=== PATIENT | female | born 1980 | race Caucasian/White ===

== ENCOUNTER 2017-07-20 00:37 | Emergency (ER) | payer OTHER ==
--- NOTE | 2017-07-20 02:24 | EDPHY ---
H & P Stated Complaint: c/o pain in R calf starting tonight, concerned taking hormones cased dvt HPI/ROS: HPI The patient presents with right calf cramping which began several hours prior to presentation. The patient is in 1st trimester of and is on hormone therapy. The cramping has been constant, is achy in nature, there is no associated swelling of the leg. She has no prior history of similar. REVIEW OF SYSTEMS Constitutional: No fever, no chills. Eyes: No discharge. ENT: No sore throat. Cardiovascular: No chest pain, no palpitations. Respiratory: No cough, no shortness of breath. Gastrointestinal: No abdominal pain, no vomiting. Genitourinary: No hematuria. Musculoskeletal: No back pain. Skin: No rashes. Neurological: No headache. PMHx: 9 weeks PHYSICAL General Appearance: Alert, no distress Eyes: Pupils equal and round no pallor or injection ENT, Mouth: Mucous membranes moist Respiratory: Breathing comfortably Neurological: A&O, moves all extremities Skin: Warm and dry, no rashes Extremities: Right calf is slightly tender to palpation with no overlying skin change, symmetrical, full range of motion Psychiatric: Patient is oriented X 3, there is no agitation Source: Patient Exam Limitations: No limitations - Personal History EDC: 02/22/18 - Medical/Surgical History Hx Asthma: No Hx Chronic Respiratory Disease: No Hx Diabetes: No Hx Cardiac Disease: No Hx Renal Disease: No Hx Cirrhosis: No Hx Alcoholism: No Hx HIV/AIDS: No Hx Splenectomy or Spleen Trauma: No Other PMH: surg reattachment of R 3rd finger, ovarian hyperstimulation synd - Social History Smoking Status: Never smoked Constitutional: Initial Vital Signs Temperature (C) 36.7 C 07/20/17 00:41 Heart Rate 84 07/20/17 00:41 Respiratory Rate 16 07/20/17 00:41 Blood Pressure 125/82 H 07/20/17 00:41 O2 Sat (%) 97 07/20/17 00:41 O2 Delivery Mode Room Air Allergies/Adverse Reactions: No Known Allergies Allergy (Unverified 07/20/17 00:47) Home Medications: Medication Instructions Recorded Estradiol 07/20/17 Progesterone 07/20/17 Tylenol 07/20/17 Medical Decision Making - Diagnostics Imaging Results: DVT ultrasound right lower extremity demonstrates no DVT. Imaging: Discussed imaging studies w/ call center support representative Radiologist Differential Diagnosis: 37-year-old G 1 P 0 at 9 weeks estimated gestational age presents with right calf pain and tenderness on exam. There is no asymmetry. Differential diagnosis includes DVT, muscle cramping associated with , less likely [place] cyst. In the emergency department, ultrasound was performed and was unremarkable. Patient was advised to continue hydration and follow up with her primary OB. She is in agreement with this plan. - Data Points Medications Given: Discontinued Medications Acetaminophen (Tylenol) 500 mg PO EDNOW ONE Stop: 07/20/17 02:39 Last Admin: 07/20/17 02:40 Dose: 500 mg Departure - Departure Disposition: Home, Routine, Self-Care Clinical Impression: Muscle cramp Condition: Good Instructions: Leg Cramps (ED), Muscle Cramp (ED) Additional Instructions: Please return to the emergency department if your worse in any way. You should follow up with your OBGYN in the next few days if your pain continues. Referrals: NONE *PRIMARY CARE P,. [Primary Care Provider] - As per Instructions
[2017-07-20] MEDS ORDERED: ACETAMINOPHEN 500 MG TAB PO ONE (02:38)
[2017-07-20 02:42] VITALS: BP 111/76; PULSE 74; RESP 18; TEMP 97.9; O2SAT 96
== END 2017-07-20 02:42 | disposition home or self-care (01) ==
DX: O99.89 Other specified diseases and conditions complicating pregnancy, childbirth and the puerperium (principal); R25.2 Cramp and spasm; Z3A.09 9 weeks gestation of pregnancy